=== PATIENT | male | born 1985 | race Caucasian/White ===

== ENCOUNTER 2024-09-26 20:41 | Emergency (ER) | payer BC, SELFPAY ==
[2024-09-26 20:47] VITALS: BP 178/111; PULSE 94; RESP 18; TEMP 36.8; O2SAT 95
--- NOTE | 2024-09-26 21:19 | ED.GENADUL_ITS ---
Discharge Plan Disposition Patient Disposition: Home Condition: Good Discharge Details Clinical Impression: Kidney stone Primary Care Provider: None,None ED Provider: Pascale Pollard Home Meds and New Rx's Prescriptions: New tamsulosin 0.4 mg capsule 0.4 mg PO DAILY Qty: 10 0RF oxycodone 5 mg capsule 5 - 10 mg PO Q6H PRNQty: 10 0RF Discharge Instructions Instructions: How to Strain Your Urine, Kidney Stone, Adult ED Additional Instructions: Tylenol and ibuprofen over the counter; follow the directions on the bottle. Oxycodone 5-10mg as needed up to every 6 hours for breakthrough pain. Tamsulosin once day to help pass the stone; can stop once passess. Strain your urine. Followup with urology; they will call you to schedule an appointment. Call your primary care doctor in the morning to schedule an appointment within on week to followup on your blood pressure which is high here in the ED. Return to the emergency department for new or worsening symptoms including fever, uncontrolled pain, or if you have any other concerns. HPI General Mode of arrival: ambulatory . Date/Time Provider Initiated Documentation: 09/26/24 20:53 . Limitations to Documentation: no limitations . Information obtained by: patient . HPI Narrative: 39yo M with hx prior kidney stone (unknown size, passed without intervention) presenting with right flank pain similar to prior stone. Pain is sharp, waxing and waning in severity but sometimes severe, radiates to his groin, and when severe is associated with nausea and vomiting. Pain unrelieved by home ibuprofen. Denies dysuria or hematuria. No fevers. No testicular pain. Otherwise in his usual state of health. Related Data Home Medications ?Medication ?Instructions ?Recorded ?Confirmed oxycodone 5 mg capsule 5 - 10 mg (1 - 2 x 5 mg) PO Q6H 09/26/24 PRN #10 caps tamsulosin 0.4 mg capsule 0.4 mg PO DAILY #10 caps 09/26/24 Previous Rx's ?Medication ?Instructions ?Recorded oxycodone 5 mg capsule 5 - 10 mg (1 - 2 x 5 mg) PO Q6H 09/26/24 PRN #10 caps tamsulosin 0.4 mg capsule 0.4 mg PO DAILY #10 caps 09/26/24 Allergies Allergy/AdvReac Type Severity Reaction Status Date / Time Penicillins Allergy Intermediate seizures, Verified 09/26/24 20:47 per pt General Stated Complaint: FlankPain SHYANNE: 3 Review of Systems Narrative: see HPI Exam Narrative Exam Narrative: General: Alert, non-toxic, appears to be in pain Head: Normocephalic, atraumatic Neck: Trachea midline, ?Neck supple. ENT: ?MMM.? No oropharygeal lesions or exudate. Cardiac: ?RRR, no murmurs appreciated Resp: No respiratory distress. CTAB. Abd: ?Soft, non-distended, nontender : ?No suprapubic tenderness. No CVA tenderness. Testicles non-tender with normal lie, no overlying skin changes. Extremities: ?No deformities.? No peripheral edema. Neurologic: GCS 15. ? Moves all extremities freely against gravity Course Vital Signs Vital signs: Vital Signs Temperature 36.8 C 09/26/24 20:47 Pulse 94 H 09/26/24 20:47 Respiratory Rate 18 09/26/24 20:47 Blood Pressure 178/111 H 09/26/24 20:47 Pulse Oximetry 95 09/26/24 20:47 Temperature 36.8 C 09/26/24 20:47 Temperature Source Temporal Artery Scan 09/26/24 20:47 Pulse 94 H 09/26/24 20:47 Respiratory Rate 18 09/26/24 20:47 Blood Pressure 178/111 H 09/26/24 20:47 Blood Pressure Position Sitting 09/26/24 20:47 Pulse Oximetry 95 09/26/24 20:47 Oxygen Delivery Method Room Air 09/26/24 20:47 Oxygen Flow Rate 0 09/26/24 20:47 Pain Level 8 09/26/24 20:47 Medical Decision Making 39yo M with hx prior kidney stone (unknown size, passed without intervention) presenting with right flank pain similar to prior stone. Hypertensive on arrival suspect 2/t pain; vital signs otherwise reassuring. Reassuring physical exam, no abdominal or testicular tenderness. Not concerned for torsion, orchitits, epidymitis, or other testicular pathology; would not get US. UA with hematuria, no indication of infection. With prior stone and similar symptoms today, would not get CT imaging. Toradol, tylenol, zofran for symptoms, and tamulosin. On reassessment continues to report significant pain. Will try PO oxycodone 10mg. Patient subsequently reports pain is tolerable. Remains persistently hypertensive despite better pain control, 170's/110's once pain under control. Instructed to followup with PCP for this. Advised to continue tylenol and ibuprofen at home, will send with short course of oxycodone for breakthrough pain, and prescribe flomax. Instructed to strain urine. Referral sent to urology. Discharged home; discharge instructions and return precautions were reviewed with patient who verbalized understanding. All qeustions were answered and he is in full agreement with the plan. Lab Data Lab results reviewed: Yes I reviewed the patient's lab results. Labs: Laboratory Tests Range/Units 09/26/24 21:04 Urine Color (Yellow) Yellow Urine Clarity (Clear) Clear Urine pH (5-8) 5.5 Ur Specific [place] (1.005-1.025) >= 1.030 H Urine Protein (Neg-Trace) mg/dL 100 H Urine Ketones (Negative) mg/dL 15 H Urine Blood (Negative) Large H Urine Nitrite (Negative) Negative Urine Bilirubin (Negative) Negative Urine Urobilinogen (Up to 0.2) mg/dL 0.2 Ur Leukocyte Esterase (Negative) Negative Urine RBC (0-2) HPF >50 H Urine WBC (0-5) HPF Negative Ur Epithelial Cells (Negative) HPF Negative Urine Crystals (Negative) HPF Negative Urine Bacteria (Negative) HPF Negative Urine Casts (Negative) LPF Negative Urine Mucus (Negative) Negative Ur Culture Indicated? No Urine Glucose (Negative) mg/dL Negative Quality:SDOH Health Related Social Needs: No Data to Display PFSH All Active Problems (Updated 09/26/24 @ 23:28 by Pascale Pollard MD) Kidney stone (Chronic) Social History Smoking/Tobacco Use Status: Current every day Tobacco Type: cigarettes Years smoked: 15 Tobacco: How many years used: 15 Smoking risk assessment performed?: Yes Alcohol Intake: current Alcohol Intake frequency: a few times a week Alcohol type: hard liquor Substance use type: does not use Housing: house
[2024-09-26 21:20] LABS: Bilirubin Negative (Negative); Blood Large (Negative); Clarity Clear (Clear); Glucose Negative (Negative); Ketones 15 mg/dL (Negative); Leukocyte Esterase Negative (Negative); Nitrite Negative (Negative); Specific Gravity >= 1.030 (1.005-1.025); Urobilinogen 0.2 mg/dL (Up to 0.2); pH 5.5 (5-8)
[2024-09-26] MEDS: Tamsulosin 0.4 MG CAPCR PO (21:27)
[2024-09-26] MEDS: Ondansetron 4 MG/2 ML VIAL IVP (21:27)
[2024-09-26] MEDS: Ketorolac 15 MG/ML VIAL IVP (21:27)
[2024-09-26 21:29] LABS: Bacteria Negative HPF (Negative); C & S Indicated? No; Casts Negative LPF (Negative); Crystals Negative HPF (Negative); Epithelial Cells Negative HPF (Negative); Mucus Negative (Negative); RBC >50 HPF (0-2); WBC Negative HPF (0-5)
[2024-09-26 22:30] VITALS: BP 217/127; PULSE 85; RESP 16; O2SAT 96
[2024-09-26 22:33] VITALS: BP 214/122
[2024-09-26 22:40] VITALS: BP 194/118
[2024-09-26] MEDS: ACETAMINOPHEN 1,000 MG/100 ML BAG 400 MG IVPB (22:51)
[2024-09-26] MEDS: oxyCODONE 5 MG TAB 10 MG PO (22:51)
[2024-09-26 23:23] VITALS: BP 179/110; PULSE 88; RESP 16; O2SAT 94
[2024-09-26 23:36] VITALS: BP 175/110; PULSE 88; RESP 16; O2SAT 94
[2024-09-26] MEDS: oxyCODONE 10 MG TAB PO (23:40)
== END 2024-09-27 00:19 | disposition home or self-care (01) ==
PROVIDERS: Emergency Provider Student in an Organized Health Care Education/Training Program
DX: N20.0 Calculus of kidney (principal); R10.9 Unspecified abdominal pain; R11.2 Nausea with vomiting, unspecified; F17.210 Nicotine dependence, cigarettes, uncomplicated
CPT/HCPCS: 96365; 96375; 99284; 81003; 81015; J0131; J1885; J2405

== ENCOUNTER 2024-11-25 10:09 | Outpatient (CLI) | payer BC, SELFPAY ==
[2024-11-25 12:28] LABS: Abs Immature Grans 0.02 10^3/uL (0.0-0.06); Absolute Basophil Count 0.05 10^3/uL (0.0-0.2); Absolute Eosinophil Count 0.14 10^3/uL (0.0-0.7); Absolute Lymphocyte Count 2.49 10^3/uL (1.2-3.4); Absolute Monocyte Count 0.51 10^3/uL (0.1-0.8); Absolute Neutrophil Count 5.66 10^3/uL (1.2-6.7); Basophils % 0.6 %; Eosinophils % 1.6 %; HCT 45.8 % (40.0-50.0); HGB 16.1 g/dL (13.5-17.5); Immature Grans % 0.2 %; Lymphocytes % 28.1 %; MCH 34.2 pg (27.0-33.0); MCHC 35.2 % (32.0-36.0); MCV 97 fL (80-95); MPV 11.1 fL (8.0-11.0); Monocytes % 5.7 %; Neutrophils % 63.8 %; Platelet Count 208 10^3/uL (130-400); RBC 4.71 10^6/uL (4.36-5.78); RDW 12.5 % (11.8-14.1); RDW-SD 44.8 fL; WBC 8.87 10^3/uL (4.4-10.8)
[2024-11-25 13:13] LABS: ALT 49 U/L (16-63); AST 34 U/L (15-37); Albumin 4.3 g/dL (3.4-5.0); Alkaline Phosphatase 74 U/L (46-116); Anion Gap 13.3 mmol/L (3-11); BUN 15 mg/dL (7-18); Bilirubin, Total 0.5 mg/dL (0.2-1.0); CO2 23.7 mmol/L (21.0-32.0); CREATININE 0.9 mg/dL (0.70-1.30); Calcium 9.3 mg/dL (8.5-10.1); Chloride 105 mmol/L (98-107); Cholesterol 141 mg/dL (<200); Estimated GFR 110.04 (mL/min/1.73m2); Glucose 123 mg/dL (74-106); HDL Cholesterol 38 mg/dL (>or=40); Potassium 3.7 mmol/L (3.5-5.1); Sodium 142 mmol/L (136-145); TSH (W/Ref FT4) 1.37 uIU/mL (0.36-3.74); Total Protein 7.3 g/dL (6.4-8.2); Triglyceride 551 mg/dL (<150)
[2024-11-25 13:45] LABS: LDL CHOLESTEROL 37 mg/dL (<100)
[2024-11-26 08:41] LABS: Hepatitis C Ab w Rflx HCV PCR Negative (Negative)
[2024-11-26 09:11] LABS: HIV-1/2 Ag & Ab Screen Negative (Negative)
[2024-11-26 09:32] LABS: HBs Antibody, Quant <3.1 mIU/mL (See Note); Hep B Surface Ab Negative (See Note); Hepatitis B Core Antibody Negative (Negative); Hepatitis B Surface Antigen Negative (Negative)
== END 2024-11-25 10:10 | disposition home or self-care (01) ==
LOC: LOS 10:09
PROVIDERS: PCP Nurse Practitioner Family; Visit Provider Nurse Practitioner Family
DX: Z00.00 Encounter for general adult medical examination without abnormal findings (principal); Z11.59 Encounter for screening for other viral diseases; Z11.4 Encounter for screening for human immunodeficiency virus [HIV]
CPT/HCPCS: 36415; 80053; 80061; 83721; 86704; 86706; 86803; 87340; 87389; 83036; 84443; 85025